=== PATIENT | female | born 1945 | race Hispanic/Latino ===

== ENCOUNTER → 2020-07-25 | Day surgery (SDC) | payer MEDICARE ==
[2020-07-08 10:12] LABS: BASOPHILS % 0.3 % (0.0-1.0); EOSINOPHILS # (AUTO) 0.1 (0.0-0.4); EOSINOPHILS % 1.5 % (0.0-6.0); HEMATOCRIT 36.3 % (34.2-44.1); HEMOGLOBIN 11.5 g/dL (12.0-16.0); LYMPHOCYTES # (AUTO) 2.1 (1.0-3.2); LYMPHOCYTES % 32.3 % (18.0-39.1); MEAN CORPUSCULAR HEMOGLOBIN 28.5 pg (28-32); MEAN CORPUSCULAR HGB CONC 31.7 g/dL (31-35); MEAN CORPUSCULAR VOLUME 89.9 fL (81-99); MONOCYTES # (AUTO) 0.4 (0.2-0.8); MONOCYTES % 5.7 % (4.4-11.3); NEUTROPHILS # (AUTO) 3.9 (2.1-6.9); NEUTROPHILS % 59.7 % (38.7-80.0); PLATELET COUNT 307 x10e3/uL (140-360); RED BLOOD COUNT 4.04 x10e6/uL (3.6-5.1); RED CELL DISTRIBUTION WIDTH 14.7 % (11.7-14.4)
[~2020-07-25] MED LIST: AMLODIPINE PO; ASPIR 8181 MG; ASPIR-LOW81 MG PO; BENICAR40 MG PO; BIOTIN PO; BYSTOLIC5 MG PO; CALCIUM CITRAT1 EAC4 PO; DAILY VITAMIN1 EAC3; DEXILANT30 MG PO; DIOVAN160 MG PO; FEROSUL325 MG PO; GABAPENTIN100 MG PO; HAIR, SKIN AND1 EAC2 PO; HYOSCYAMINE 0.125 MG TAB ONE; IRBESARTAN150 MG PO; KEFLEX500 MG PO; KELP150 MC1 PO; LORTAB 10-5001 EACH PO; MAGNESIUM OXID400 MG PO; METFORMIN HCL500 MG PO; METOCLOPRAMIDE HCL 10 MG/2ML VIAL ONE; NEXIUM40 MG; NEXIUM40 MG PO; OMEGA 3 PO; OMEPRAZOLE40 MG PO; ONGLYZA5 MG PO; PRAVASTATIN SOD20 MG PO; PROPANTHELINE B15 MG PO; SURFAK240 MG PO; TRADJENTA5 MG PO; TRIAMCINOLONE A15 G1 TOP; TRIAMTERENE-HCTZ1 EA PO; TURMERIC PO; VERAPAMIL ER240 MG PO; VIT C PO; VITAMIN D32000 UNIT PO
[2020-07-25 13:20] VITALS: BP 117/84
== END | disposition home or self-care (01) ==
LOC: OR 09:20
PROVIDERS: ATTEND Internal Medicine Gastroenterology
DX: Z12.11 Encounter for screening for malignant neoplasm of colon (principal); K31.7 Polyp of stomach and duodenum; K29.70 Gastritis, unspecified, without bleeding; K29.80 Duodenitis without bleeding; K44.9 Diaphragmatic hernia without obstruction or gangrene; K56.609 Unspecified intestinal obstruction, unspecified as to partial versus complete obstruction; K21.9 Gastro-esophageal reflux disease without esophagitis; K57.30 Diverticulosis of large intestine without perforation or abscess without bleeding; K64.8 Other hemorrhoids; D64.9 Anemia, unspecified; I10 Essential (primary) hypertension; E78.5 Hyperlipidemia, unspecified; E11.9 Type 2 diabetes mellitus without complications; Z88.6 Allergy status to analgesic agent; Z91.041 Radiographic dye allergy status; Z01.810 Encounter for preprocedural cardiovascular examination; Z01.812 Encounter for preprocedural laboratory examination; Z20.828 Contact with and (suspected) exposure to other viral communicable diseases; Z86.19 Personal history of other infectious and parasitic diseases; Z80.0 Family history of malignant neoplasm of digestive organs
CPT/HCPCS: 36415 ×2; 43239; 45378; 82948; 85025; 88305; 88312; 93005; J2765; U0002

== ENCOUNTER → 2020-08-30 | Outpatient (CLI) | payer MEDICARE ==
[~2020-08-30] MED LIST changes: -HYOSCYAMINE 0.125 MG TAB ONE; -METOCLOPRAMIDE HCL 10 MG/2ML VIAL ONE
== END ==
LOC: DX 08:30
PROVIDERS: ATTEND Internal Medicine Gastroenterology
DX: Z86.010 Personal history of colon polyps (principal)
CPT/HCPCS: 74280